=== PATIENT | female | born 1950 | race African-American/Black ===

== ENCOUNTER 2018-05-09 13:33 | Emergency (ER) | payer OTHER ==
[~2018-05-09] VITALS: Ht 165.1 cm; Wt 100.0 kg
[2018-05-09] MEDS ORDERED: GABAPENTIN 100MG CAPSULE PO ONE (15:15)
[2018-05-09] MEDS ORDERED: HYDROCODONE/ACETAMINOPHEN 5/325MG TABLET PO ONE (15:15)
[2018-05-09 15:26] LABS: CHLORIDE 102 mEq/L (98-107)
[2018-05-09 15:27] LABS: BASOPHILS % 0.6 % (0.0-2.0); EOSINOPHILS % 0.7 % (0.0-5.0); HEMATOCRIT. 36.7 % (36.0-48.0); HEMOGLOBIN. 12.3 g/dL (12.0-16.0); MEAN CORPUSCULAR HEMOGLOBIN 29.9 pg (28.0-32.0); MEAN CORPUSCULAR VOLUME 89.1 fL (81.0-99.0); MEAN PLATELET VOLUME 7.9 fl (7.4-10.4); NEUTROPHILS % 67.7 % (40.0-76.0); PLATELET 297 x1000/uL (130-400); RED BLOOD CELL COUNT 4.12 mill/uL (4.2-5.4); RED CELL DISTRIBUTION WIDTH 13.4 % (11.6-14.6)
[2018-05-09 17:05] VITALS: BP 171/83
== END 2018-05-09 17:11 | disposition home or self-care (01) ==
LOC: ER 13:52
DX: R42 Dizziness and giddiness (principal); F41.9 Anxiety disorder, unspecified; F17.210 Nicotine dependence, cigarettes, uncomplicated; R94.31 Abnormal electrocardiogram [ECG] [EKG]
CPT/HCPCS: 36415; 80053; 85025; 93005; 99285